=== PATIENT | female | born 1950 | race Caucasian/White ===

== ENCOUNTER → 2017-02-23 | Outpatient (CLI) | payer OTHER ==
--- NOTE | 2017-02-23 13:59 | DIAGNOSTIC IMAGING REPORT ---
LOWER EXT JOINT WITHOUT CLINICAL HISTORY: 66 years-old Female with RT KNEE SWELLING. History of remote fall with pain and swelling for 2 months. COMPARISON: None available TECHNIQUE: Multiplanar, multisequence MRI of the right knee was performed without intravenous contrast. FINDINGS: MENISCI: The medial and lateral meniscus are normal in position, morphology and signal. CRUCIATE LIGAMENTS: Complex tear of the posterior horn medial meniscus is noted extending into the meniscal root with mild likely reactive bone marrow edema noted involving the posterior medial tibial plateau adjacent to the meniscal root as seen on image 13 of the sagittal PD series. Horizontal undersurface tear of the posterior horn extends into the posterior junction as seen on image 16 of the sagittal series and image 19 of the coronal PD series. No displaced fragment or parameniscal cyst identified. There is a few millimeters of mild medial extrusion of the medial meniscus into the adjacent meniscal gutter. There is mild adjacent reactive edema. There is a horizontal undersurface tear of the posterior horn lateral meniscus as seen on image 7 of the sagittal PD series and image 21 of the coronal PD series. Increased PD signal is noted involving the posterior horn meniscal root, suspicious for tear extension. COLLATERAL LIGAMENTS: The popliteus tendon, biceps femoris tendon, fibular collateral ligament and iliotibial band are intact. There is intermediate signal and mild thickening noted within the proximal MCL as seen on image 18 of the coronal PD series with trace deep and superficial fluid noted adjacent to the ligament. EXTENSOR MECHANISM: The quadriceps and patellar tendons are intact.The medial and lateral patellar retinacula are intact. KNEE JOINT: Moderate sized joint effusion is present. Tricompartmental osteoarthritis is noted, most pronounced within the medial and patellofemoral compartments. 5 mm surface osteophyte of the mid weightbearing femoral condyle is noted with adjacent moderate grade chondral thinning. Mild to moderate degenerative changes involve the medial compartment with mild lateral and patellofemoral disease. Mild chondral fissuring is seen within the patellofemoral and lateral compartments. No loose body identified. BONE MARROW: No fracture identified. SOFT TISSUES: There is mild to moderate amount of edema/fluid within the superficial prepatellar bursa . There is a trace Belcher's cyst. IMPRESSION: 1. Complex tear of the posterior horn medial meniscus with extension into the meniscal root. Horizontal undersurface component of the tear extends into the posterior junction. 2. Horizontal undersurface tear of the posterior horn lateral meniscus with possible extension into the posterior meniscal root. 3. Grade 2 sprain of the MCL. 4. Tricompartment osteoarthritis, most pronounced within the medial compartment where there is mild to moderate disease. 5. Mild to moderate superficial prepatellar bursitis. 6. Moderate-sized joint effusion. The above report was generated using voice recognition software. It may contain grammatical, syntax or spelling errors. Electronically signed by: Montez Zuleta M.D. 02/23/2017 1:58 PM Dictated Date/Time: 02/23/2017 1:03 PM
== END | disposition home or self-care (01) ==
LOC: C.MRIBC 12:08
PROVIDERS: ATTEND Family Medicine
DX: M25.461 Effusion, right knee (principal)

== ENCOUNTER → 2017-03-02 | Outpatient (CLI) | payer OTHER | END | disposition home or self-care (01) | LOC: C.RDSM 08:49 | PROVIDERS: ATTEND Physical Medicine & Rehabilitation Sports Medicine | DX: M25.561 Pain in right knee (principal) ==

== ENCOUNTER → 2017-06-13 | Outpatient (CLI) | payer OTHER ==
[~2017-06-13] MED LIST: ASPECOTC PO; BCTCR/30 EXT; CALC750T PO; CHOL200010 PO; DICL1KIT3 TOP; RANI300T2 PO; TRAM-10 PO
== END | disposition home or self-care (01) ==
LOC: C.RDSM 11:03
PROVIDERS: ATTEND Physical Medicine & Rehabilitation Sports Medicine
DX: S83.221D Peripheral tear of medial meniscus, current injury, right knee, subsequent encounter (principal); X58.XXXD Exposure to other specified factors, subsequent encounter; M25.561 Pain in right knee

== ENCOUNTER → 2017-08-09 | Day surgery (SDC) | payer OTHER ==
[2017-07-24 13:56] VITALS: Ht 160 cm; Wt 95.5 kg
[~2017-08-09] VITALS: Ht 160 cm; Wt 95.5 kg
[~2017-08-09] MED LIST changes: -ASPECOTC PO; +ASPI325T45 PO; +ATROPINE SULFATE 0.1 MG/ML 5ML SYR IV PRN; +CEFAZOLIN 2000MG IV PUSH 15 ML IV SCH; +DEXAMETHASONE SOD INJ 4 MG/ML VIAL ONE; +EpHEDrine SULFATE 50MG/5ML SYR ONE; +EpHEDrine SULFATE INJ 50 MG/ML AMP IV PRN; +FENTANYL CITRATE INJ 50 MCG/1 ML 2 ML VIAL ONE; +HYDROCODONE/ACETAMIN 5/325MG TAB PO PRN; +HYDROmorphone INJ 1 MG/ML SYR IV PRN; +LACTATED RINGER'S 1000ML 1,000 ML IV SCH; +LIDOCAINE HCL 2% 2 ML VIAL (20MG/ML) ONE; +LIDOCAINE/EPINEPHRINE 1% 20 ML VIAL ONE; +MIDAZOLAM HCL 1 MG/ML 2ML VIAL ONE; +MoRPHine SULFATE 2 MG/ML CARP IV PRN; +MoRPHine SULFATE 4 MG/ML 1 ML CARP\\VIAL IV PRN; +ONDANSETRON INJ 2 MG/ML 2 ML VIAL IV PRN; +ONDANSETRON INJ 2 MG/ML 2 ML VIAL ONE; +PROPOFOL IV EMULSION 10 MG/ML 20 ML VIAL IV ONE; +SODIUM CHLORIDE 0.9% 1000ML 1,000 ML IV SCH
--- NOTE | 2017-08-09 06:47 | History & Physical Bridge Note ---
H&P Re-Evaluation Bridge Note: I have examined the patient, reviewed the History & Physical and in the interval since the performance of the History & Physical I have noted the following changes of clinical significance: No changes noted
--- NOTE | 2017-08-09 09:22 | [facility] Post Operative Brief Note ---
Immediate Operative Summary Operative Date Aug 09, 2017. Pre-Operative Diagnosis Right Medial Meniscus Tear Post-Operative Diagnosis Same, chondrosis, loose bodies Procedure(s) Performed right knee chondroplasty and partial medial meniscctomy Surgeon Dr. Sivan Matthews Media Production Manager Surgeon(s) Mk Archibald PA-C, Eileen Ser Estimated Blood Loss 5 Findings Consistent with Post-Op Diagnosis Specimens None Drains None Anesthesia Type General Complication(s) none Disposition Accompanied Pt To Recovery: no Disposition: Recovery Room / PACU
--- NOTE | 2017-08-09 09:39 | Discharge Instructions-SurgCtr ---
Discharge Instructions Date of Service Aug 09, 2017. Visit Reason for Visit: Right Knee Medial Meniscus Tear Discharge Discharge Diagnosis / Problem: right knee medial meniscus tear, degenerative joint disease Discharge Goals Goal(s): Decrease discomfort, Improve function, Increase independence Activity Recommendations Activity Limitations: per Instructions/Follow-up section Weightbearing Status: Left weightbearing (as tolerated), Right weightbearing ( as tolerated) Anesthesia . Post Anesthesia Instructions: If you have had General Anesthesia or IV Sedation: * Do not drive today. * Resume driving when surgeon permits. * Do not make important decisions or sign legal documents today. * Call surgeon for: 1. Temperature elevations greater than 101 degrees F. 2. Uncontrollable pain. 3. Excessive bleeding. 4. Persistent nausea and vomiting. 5. Medication intolerance (nausea, vomiting or rash). * For nausea and vomiting use only clear liquids such as: tea, soda, bouillon until nausea subsides, then gradually increase diet as tolerated. * If you have any concerns or questions, call your surgeon's office. If physician is unavailable and it is an emergency, call 911 or go to the nearest emergency room. . Instructions / Follow-Up Instructions / Follow-Up The following are instructions to follow after your Arthroscopic Knee Surgery. ACTIVITY RECOMMENDATIONS: * Minimize activity until your first visit after surgery. * No excessive walking, jogging, sports or laboring. * Return to activity is individualized. Most patients are able to return to every day activities within one month. * Return to sports or intensive labor usually occurs at 2-3 months. * Driving is not permitted until at least your first postoperative visit at a minimum. Please ask your doctor when it is safe to resume driving. If you have an automatic vehicle and your left leg has been operated on, then you may begin driving as soon as you are comfortable and can drive safely. SCHOOL/WORK RECOMMENDATIONS: * You may return to sedentary work or school when you are feeling more comfortable. This is usually 3-7 days after surgery. * Expect increased discomfort with increased activity. Continue to elevate and ice the leg as much as possible. MEDICATIONS: * You will have a prescription for pain medication and an anti-inflammatory medication after surgery. * Use the pain medication for severe pain and the anti-inflammatory for less severe pain. Once the pain medication has run out, try to use the anti-inflammatory medication. If this is not effective, contact the office for assistance. * The pain medication may cause nausea, constipation and drowsiness. You should see how they affect you before driving or similar activity. * Take aspirin 325 mg twice daily with food. You may start this the evening of surgery. Continue aspirin for 1 month after surgery. * Take a stool softener like Colace or a laxative like Senokot to prevent constipation. DIET: * Resume previous diet. SPECIAL CARE: ICE: You have the option of an ice cooler, gel packs or ice bags. * If you have an ice cooler, refer to the instructions for that device. The ice cooler may be used continuously. * If you do not have an ice cooler, you will need to use ice bags or gel packs. Do not apply ice directly to the skin. Use a thin dressing or sami shirt between the skin and ice bag. Apply ice for 20-30 minutes and repeat every 2-4 hours. This is especially important for the first 7-10 days after surgery. Once the pain improves, use ice as needed. ELEVATION: * Keep your leg elevated at or above the level of your heart as much as possible. * Expect some increased discomfort and swelling if you are standing for any length of time. * When lying down, avoid placing anything under your knee. Rather, prop your leg up by placing several pillows under your heel or calf. DRESSING: * Your dressing will be changed at your first therapy appointment approximately 4-5 days after surgery. Band-aids, tape strips or gauze may be applied. You may then change your dressing daily. * Reapply dressing followed by the Travis wrap or Tubi-drill rig operator stockinet and EBIce cooling pad (if chosen). * Always wash your hands prior to touching the incision area. * Once the stitches are removed, you may leave the wound open to air or cover with an Travis wrap or Tubi-drill rig operator stockinet. * If you have been given a white elastic stocking (CAM hose), wear as much as possible for the first 1-3 weeks depending on swelling. * Expect some bloody drainage for the first few days after surgery. * Leave the tape strips, if present, in place for 5-7 days. * Band-aids and gauze may be changed daily. CRUTCHES: * You will need to use crutches after surgery. * You may gradually progress to full weight bearing as tolerated and wean off the crutches unless otherwise advised. * Your therapist can provide assistance weaning off crutches. * Patients who have a microfracture done may need to be toe-touch weight- bearing for 4-6 weeks. BATHING: * You may shower or sponge-bathe immediately after surgery. * The dressing will need to be covered with a plastic bag or plastic wrap until the dressing is changed on the fourth or fifth day after surgery. * Once the dressing has been changed on the fourth or fifth day after surgery, you may shower and get the incision wet. * Wash with regular soap and water. * Do not bathe (submerge the incision), soak, swim or use a hot tub until the incision is completely healed over with normal skin and the doctor has given the OK to proceed. * There is no need to apply any ointments, powders or salves to your incision. * Do not apply alcohol or hydrogen peroxide directly to the incision. * Diluted peroxide (50:50 mixture with sterile saline) may be used to clean dried blood from around the incision area. BRACE: * Bracing is generally not needed after routine Arthroscopic Knee surgery. THERAPY: * You will begin therapy four or five days after surgery. * Organized therapy with the therapist is important for the first 4-6 weeks after surgery. During that time you will attend therapy 1-3 times per week. * You will also need to do daily exercises for range of motion and strength as instructed. PROBLEMS/QUESTIONS: * If you have any problems such as severe pain, numbness, tingling or high fevers or if you have any questions, please contact the office at [phone]. * It is not uncommon to have some numbness and tingling after the surgery especially if you have had a nerve block done. This should gradually improve over the first 1- 2 days. If this persists longer or worsens please contact the office. FOLLOW UP VISIT: * If not already scheduled, please call the office at to schedule a follow-up appointment for 10 days, 6 weeks and 3 months after surgery. * You have a physical therapy appointment on 08/15/2017 at 10:30 AM. * You have a follow-up appointment scheduled with Dr. Matthews on 08/22/2017 at 11:45 AM Diet Recommendations Home Diet: no limitations, resume previous diet Procedures Procedures Performed: Right knee arthroscopy, chondroplasty and partial medial meniscctomy Pending Studies Studies pending at discharge: no Medical Emergencies . Who to Call and When: Medical Emergencies: If at any time you feel your situation is an emergency, please call 911 immediately. . Non-Emergent Contact Non-Emergency issues call your: Surgeon Call Non-Emergent contact if: temperature is above 101, your pain is not controlled, your pain is worsening, your pain is unusual for you, your pain is concerning you, wound has increased drainage, wound has increased redness, wound has increased pain, you have any medication questions . . "Provider Documentation" section prepared by April Archibald. . [place] Drug Monitoring Program Search Results: patient reviewed within database, no issues identified
--- NOTE | 2017-08-09 09:42 | [facility] Operative Report ---
Operative Report Operative Date Aug 09, 2017. Pre-Operative Diagnosis Right Medial Meniscus Tear Post-Operative Diagnosis Same, chondrosis, loose bodies Procedure(s) Performed Right knee arthroscopy, chondroplasty and partial medial meniscctomy Surgeon Dr. Sivan Matthews Wick Tender Surgeon(s) Mk Archibald PA-C, Blanca Chaudhary Estimated Blood Loss 5 Findings medial mensicus tear Specimens None Drains None Anesthesia Type General Complication(s) none Disposition no Recovery Room / PACU Indications Patient is a 66 -year-old female who presented to our complaints of right knee pain. She states that her knee pain progressively worsened. X-rays were taken and she was found to have some mild medial compartment arthritis and an MRI was obtained and she was found to have a medial meniscal tear. She failed conservative treatment surgical intervention was discussed. She wished to proceed with surgery. Risks and complications of surgery were explained to the patient. Informed consent was obtained Description of Procedure Patient was taken to the operating room and placed under general anesthesia. She was given 2 g of IV Ancef for surgical prophylaxis. Timeout was performed. She was prepped and draped in routine sterile fashion. I was present during the entire case, please see Dr. Matthews's operative report for further detail. Patient was awakened and transferred to the recovery room in stable condition. I attest to the content of the Intraoperative Record and any orders documented therein. Any exceptions are noted below.
--- NOTE | 2017-08-09 09:42 | Medical Student: [facility] ---
Immediate Operative Summary Operative Date Aug 09, 2017. Pre-Operative Diagnosis Right medial meniscal tear, degenerative joint disease of the right knee Post-Operative Diagnosis Right medial meniscal tear, degenerative joint disease of the right knee Procedure(s) Performed Arthroscopy of the right knee with partial medial meniscectomy and chondroplasty Surgeon Dr. Matthews Protective Signal Operator Surgeon(s) April Archibald PA-C and Blanca Chaudhary MS3 Estimated Blood Loss 5cc Findings Torn right medial meniscus at the posterior horn Grade 4 cartilage damage of the right medial condyle of the femur Osteophytes along the right medial condyle of the femur Loose bodies Some fraying of the right lateral meniscus Normal ACL and PCL Specimens No specimens obtained Drains None Anesthesia General Complication(s) None Disposition Recovery Room / PACU
[2017-08-09] MEDS: FENTANYL CITRATE INJ 50 MCG/1 ML 2 ML VIAL IV PRN ×3 (09:45→10:00)
--- NOTE | 2017-08-09 10:01 | [facility] Operative Report ---
Operative Report Operative Date Aug 09, 2017. Pre-Operative Diagnosis Right Medial Meniscus Tear Post-Operative Diagnosis Same, chondrosis, loose bodies Procedure(s) Performed right knee chondroplasty and partial medial meniscctomy Surgeon Dr. Sivan Matthews Compliance Mgr Surgeon(s) Mk Archibald PA-C, Blanca Chaudhary Estimated Blood Loss 5 Findings Medial compartment chondrosis. Multiple loose bodies. Medial meniscal root tear. Diffuse chondrosis. Specimens None Anesthesia Local with IV sedation Complication(s) None Disposition Recovery Room / PACU Indications Patient is a 58-year-old female with right medial knee pain consistent with a torn meniscus and probable chondrosis. Her symptoms are refractory to nonsurgical methods of management and she is elected to proceed with operative intervention. Description of Procedure Informed consent was obtained. The patient was identified as Armida Allen. The operative site was identified as the right knee. A preop dose of IV antibiotics was given. The patient was taken to the operating room and positioned supine on the operating room table. A preoperative surgical timeout was performed. The limb was prepped and draped in the usual sterile fashion. The examination under anesthesia showed full range of motion 0 to approximately 120 equal to the opposite side. Cruciate and collateral stability was intact. There is no effusion. A lateral post was used for stressing the knee. No tourniquet was applied. DVT prophylaxis with early mobility and aspirin. She was positioned supine on the operating room table. A laryngeal mask anesthetic was administered. Prior to start of the operation 1% lidocaine with epinephrine was injected into the knee joint fat pad and portal sites. Inferolateral viewing portal superior lateral outflow portal and inferomedial working portals were established. There were 2 chondral loose bodies noted each within the lateral gutter and these were evacuated with the shaver. There was diffuse grade 1 and 2 chondrosis of the patella with marginal osteophytes. There is diffuse grade 2 chondrosis of the trochlea which was lightly debrided with the shaver. Suprapatellar pouch otherwise unremarkable. The retropatellar fat pad was resected and the cruciate ligaments were normal. The posterior medial compartment showed a medial meniscal root tear which had healed to some degree. Posterior lateral compartment negative. The medial meniscus was intact and stable to probing with the exception of some fraying along the inner rim of the posterior horn which was debrided with the basket forceps. The meniscal root tear which had partially healed was noted. There was grade 2-4 chondrosis of the medial condyle in the weightbearing area. There was an intralesional osteophyte which was present. Arthroplasty was performed. This was a large area 2-3 cm wide and 3-4 cm in anterior to posterior dimension. There was fraying along the inner rim of the lateral meniscus which was debrided the lateral meniscus was intact and stable to probing the lateral femoral condyle was normal. Popliteal hiatus and the medial lateral gutters were otherwise unremarkable. There was grade 2 chondrosis perhaps grade 3 involving the lateral tibial plateau which was debrided. Osteophytes are noted in the intercondylar notch tibial spines and margins of the femur. The orthoscopic instruments removed from the knee portals were closed with 4-0 nylon soft sterile dressing was applied. Patient was awake from anesthesia without difficulty and taken to recovery in stable condition. There were no specimens or complications. Counts were correct at the case. Blood loss was minimal. At the conclusion of the operation spoke patient's family informed of my findings in detail postoperative instructions were given. Patient will be rehabilitated according to the arthroscopic meniscectomy/chondroplasty protocol. She may do early weightbearing as tolerated. She will begin aspirin for DVT prophylaxis the evening of surgery. The medial compartment was opened by using a 18-gauge spinal needle to perforate the MCL which resulted in grade 1 laxity with a firm endpoint. I attest to the content of the Intraoperative Record and any orders documented therein. Any exceptions are noted below.
--- NOTE | 2017-08-09 11:20 | Anesthesia Progress Nt - [facility] ---
Anesthesia Post Op Note Date & Time Aug 09, 2017 at 11:20 Vital Signs Pain Intensity: 3.0 Vital Signs Past 12 Hours Date Time Temp Pulse Resp B/P (MAP) Pulse Ox O2 Delivery O2 Flow Rate FiO2 08/09/17 10:35 36.7 58 14 142/87 (105) 97 Room Air 08/09/17 10:26 60 11 08/09/17 10:26 58 11 123/84 98 08/09/17 10:25 36.3 58 16 123/84 98 Room Air 08/09/17 10:21 57 10 133/74 99 08/09/17 10:21 57 10 08/09/17 10:16 61 10 136/85 95 08/09/17 10:16 62 10 08/09/17 10:11 57 13 08/09/17 10:11 56 13 135/77 95 08/09/17 10:06 57 14 08/09/17 10:06 56 14 141/83 95 08/09/17 10:01 57 9 138/92 98 08/09/17 10:01 57 9 08/09/17 09:57 141/88 08/09/17 09:56 59 13 99 08/09/17 09:56 58 13 08/09/17 09:51 59 16 08/09/17 09:51 58 16 99 08/09/17 09:47 161/64 08/09/17 09:46 59 14 08/09/17 09:46 59 14 98 08/09/17 09:41 59 15 156/85 98 08/09/17 09:41 60 15 08/09/17 09:37 151/86 08/09/17 09:36 63 9 08/09/17 09:36 36.7 58 16 151/86 99 Mask 6 08/09/17 09:36 63 9 98 08/09/17 07:03 36.6 60 16 136/85 (102) 96 Room Air Notes Mental Status: alert / awake / arousable, participated in evaluation Pt Amnestic to Procedure: Yes Nausea / Vomiting: adequately controlled Pain: adequately controlled Airway Patency, RR, SpO2: stable & adequate BP & HR: stable & adequate Hydration State: stable & adequate Anesthetic Complications: no major complications apparent
[2017-08-09 11:30] VITALS: BP 127/79; PULSE 56; TEMP 36.5; O2SAT 96
== END | disposition home or self-care (01) ==
LOC: X.SURG 06:40
PROVIDERS: ATTEND Physical Medicine & Rehabilitation Sports Medicine
DX: M23.221 Derangement of posterior horn of medial meniscus due to old tear or injury, right knee (principal); M23.41 Loose body in knee, right knee; M11.261 Other chondrocalcinosis, right knee; K21.9 Gastro-esophageal reflux disease without esophagitis; E66.9 Obesity, unspecified; Z86.14 Personal history of Methicillin resistant Staphylococcus aureus infection; Z83.3 Family history of diabetes mellitus; Z82.49 Family history of ischemic heart disease and other diseases of the circulatory system; Z83.6 Family history of other diseases of the respiratory system